=== PATIENT | female | born 2000 | race Caucasian/White ===

== ENCOUNTER 2020-11-11 08:30 | Emergency (ER) | payer BC, MEDICAID ==
[2020-11-11] MEDS ORDERED: Propofol 200 MG/20 ML SDV IV ONE (08:31)
--- NOTE | 2020-11-11 09:24 | EDM.PDOC ---
<Lu Cheng - Last Filed: 11/11/20 10:11> ED HPI GENERAL MEDICAL PROBLEM - General Chief Complaint: Laceration Stated Complaint: HEAD LACERATION Time Seen by Provider: 11/11/20 08:46 Source of Information: Reports: Family (father is with the patient ), Provider History Limitations: Reports: Other (Patient is mentally handicapped; history offered from father and provider ) - History of Present Illness INITIAL COMMENTS - FREE TEXT/NARRATIVE: Patient is a mentally handicapped 20 y.o. female, accompanied by her father and home provider, who is seen in the ED due to a laceration to the left eye brow. The patient was walking this morning at home, tripped and bumped her head on a chair when her glasses cut into her face. Father and home provider state the patient is clumsy and trips and falls frequently. Patient's home provider states she was able to walk into the ED with no issues. The patient has no complaints of headache, dizziness, and no other complaints of pain. Father and home provider offer no other concerns. Onset: Today Location: Reports: Face (left eye brow ) Improves with: Reports: None Worsens with: Reports: None Associated Symptoms: Reports: No Other Symptoms. Denies: Headaches, Nausea/Vomiting Head Pain Score (Numeric/FACES): 3 - Related Data Allergies Allergy/AdvReac Type Severity Reaction Status Date / Time No Known Allergies Allergy Verified 11/11/20 08:51 Past Medical History HEENT History: Reports: Impaired Vision Other HEENT History: wears glasses Cardiovascular History: Reports: None Respiratory History: Reports: None Gastrointestinal History: Reports: None Genitourinary History: Reports: None MACHINE SET UP History: Reports: None Musculoskeletal History: Reports: None Psychiatric History: Reports: Anxiety Endocrine/Metabolic History: Reports: None Hematologic History: Reports: None Immunologic History: Reports: None Oncologic (Cancer) History: Reports: None Dermatologic History: Reports: None - Past Surgical History Head Surgeries/Procedures: Reports: None Other Musculoskeletal Surgeries/Procedures:: foot surgury Social & Family History - Tobacco Use Tobacco Use Status *Q: Never Tobacco User Second Hand Smoke Exposure: No - Caffeine Use Caffeine Use: Reports: None - Recreational Drug Use Recreational Drug Use: No ED ROS GENERAL - Review of Systems Review Of Systems: Comprehensive ROS is negative, except as noted in HPI. ED EXAM, SKIN/RASH Exam Limited By: Other (patient is mentally handicapped, history given by father and home provider) General Appearance: Alert, WD/WN, No Apparent Distress Eye Exam: Bilateral Eye: EOMI, Normal Inspection, PERRL Nose: Normal Inspection, Normal Mucosa, No Blood. No: Nasal Deformity Throat/Mouth: Normal Inspection, Normal Lips, Normal Teeth, Normal Gums, Normal Oropharynx, Normal Voice, No Airway Compromise Head: Atraumatic, Normocephalic, Facial Swelling (swelling of the lateral left brow ) Neck: Normal Inspection, Supple, Non-Tender, Full Range of Motion Respiratory/Chest: No Respiratory Distress, Lungs Clear, Normal Breath Sounds, No Accessory Muscle Use, Chest Non-Tender Cardiovascular: Normal Peripheral Pulses, Regular Rate, Rhythm, No Edema, No Gallop, No JVD, No Murmur, No Rub Extremities: Normal Inspection, Normal Range of Motion, Non-Tender, No Pedal Edema, Normal Capillary Refill Neurological: Alert, Oriented, CN II-XII Intact, No Motor/Sensory Deficits, Other (Patient is mentally handicapped; mental capacity ~5 year old ) Psychiatric: Anxious Skin: Warm, Wound/Incision (3 cm laceration to the lateral left brow with moder ate swelling ). No: Ecchymosis, Erythema Location, Skin: Face (lateral left brow ) Lymphatic: No Adenopathy Course - Re-Assessments/Exams Free Text/Narrative Re-Assessment/Exam: Patient is mentally handicapped and very sensitive to external stimulation. She appears anxious on physical exam. Father reports the patient had a very difficult time the last time she received sutures and had to be held down by 5 staff members. We spoke with Dad regarding conscious sedation, to which he agreed would be best for the patient. We discussed the patient's history and exam with anesthesia and they agreed to consciously sedate the patient for procedure. Departure - Departure Time of Disposition: 10:15 Disposition: Home, Self-Care 01 Condition: Good Clinical Impression: Laceration - Discharge Information *PRESCRIPTION DRUG MONITORING PROGRAM REVIEWED*: Not Applicable *COPY OF PRESCRIPTION DRUG MONITORING REPORT IN PATIENT JACK: Not Applicable Instructions: Laceration Care, Adult, [id number], Sutures, Antonio, or Adhesive Wound Closure, [id number], Moderate Conscious Sedation, Pediatric, Care After Referrals: Monserrat Dow MD [Primary Care Provider] - Forms: ED Department Discharge Care Plan Goals: -Patient received 7 sutures of the lateral left brow. Sutures should stay in place for the next 5-7 days. -Keep laceration covered with bandage to prevent patient from picking/pulling at sutures. -Monitor laceration for signs of infection. -Follow up in 5-7 days with primary care provider to have sutures removed. -The patient's father was sent with instructions regarding conscious sedation and laceration care. Sepsis Event Note (ED) - Evaluation Sepsis Screening Result: No Definite Risk <Kenny Sue - Last Filed: 11/12/20 07:19> ED ROS GENERAL - Review of Systems Review Of Systems: Comprehensive ROS is negative, except as noted in HPI. ED EXAM, SKIN/RASH Exam: See Below ED SKIN PROCEDURES - Laceration/Wound Repair Left Lateral Brow Appearance: Subcutaneous Distal NVT: Neuro & Vascular Intact Anesthetic Type: Local Local Anesthesia - Lidocaine (Xylocaine): 2% with EPI Local Anesthetic Volume: 3cc Skin Prep: Saline Exploration/Debridement/Repair: Wound Explored, In a Bloodless Field, No Foreign Material Found Closed with: Sutures Lac/Wound length In cm: 3.0 Suture Size: 5-0 # of Sutures: 7 Suture Type: Prolene, Interrupted, Simple Drain Placement: No Sterile Dressing Applied: Nurse Tetanus Status Addressed: Yes Complications: No Course - Vital Signs Last Recorded V/S: Last Vital Signs Temp 36.4 C 11/11/20 08:46 Pulse 84 11/11/20 08:46 Resp 16 11/11/20 08:46 BP 124/67 11/11/20 08:46 Pulse Ox 99 11/11/20 08:46 - Orders/Labs/Meds Meds: Medications Discontinued Medications Generic Name Dose Route Start Last Admin Trade Name Freq PRN Reason Stop Dose Admin Lidocaine/Epinephrine 20 ml 11/11/20 09:30 11/11/20 09:59 Lidocaine 2% With Epinephrine 1:200,000 20 Ml Sdv INJECT 11/11/20 09:31 20 ml ONETIME ONE Administration - Re-Assessments/Exams Free Text/Narrative Re-Assessment/Exam: 11/12/20 07:17 I have examined the patient. I have discussed findings and treatment plan with the PA student. I agree with the assessment and plan in the following students note.
[2020-11-11] MEDS ORDERED: Lidocaine 2% with EPINEPHrine 1:200,000 20 ML SDV INJECT ONE (09:30)
== END 2020-11-11 10:42 | disposition home or self-care (01) ==
LOC: DL.ED 08:30
DX: S01.81XA Laceration without foreign body of other part of head, initial encounter (principal); W01.198A Fall on same level from slipping, tripping and stumbling with subsequent striking against other object, initial encounter; Y93.01 Activity, walking, marching and hiking; Y92.009 Unspecified place in unspecified non-institutional (private) residence as the place of occurrence of the external cause
CPT/HCPCS: 00103; 12013; 99152; 99153; 99282; 99283; J2704

== ENCOUNTER 2021-05-09 19:57 | Emergency (ER) | payer BC, MEDICAID | END 2021-05-09 20:55 | disposition left against medical advice (07) | LOC: DL.ED 19:57 | DX: S09.90XA Unspecified injury of head, initial encounter (principal); Z53.21 Procedure and treatment not carried out due to patient leaving prior to being seen by health care provider ==

== ENCOUNTER 2023-10-18 16:24 | Emergency (ER) | payer BC, MEDICAID | END 2023-10-18 18:30 | disposition home or self-care (01) | LOC: DL.ED 16:24 | DX: S06.0X0A Concussion without loss of consciousness, initial encounter (principal); S01.112A Laceration without foreign body of left eyelid and periocular area, initial encounter; W19.XXXA Unspecified fall, initial encounter | CPT/HCPCS: 12011; 70450; 70486; 99282; 99283 ==